=== PATIENT | male | born 1970 | race Asian ===

== ENCOUNTER 2021-06-10 05:03 | Emergency (ER) | payer OTHER ==
[~2021-06-10] VITALS: Ht 175.3 cm; Wt 83.1 kg
[2021-06-10] MEDS ORDERED: OXYMETAZOLINE NASAL SPRAY 0.05%,30ML ONE (05:40)
--- NOTE | 2021-06-10 05:44 | NUR ---
CRIS VILLALBA AT BS.
[2021-06-10 05:58] LABS: BASOPHILS % (AUTO) 1 % (0-1); EOSINOPHILS % (AUTO) 1 % (1-7); LYMPHOCYTES % (AUTO) 16 % (22-44); MEAN CORPUSCULAR HEMOGLOBIN 31.2 pg (27.5-34.5); MEAN PLATELET VOLUME 7.5 fL (7.4-10.4); MONOCYTES % (AUTO) 7 % (2-9); NEUTROPHILS % (AUTO) 75 % (42-75); PLATELET COUNT 275 x10^3/uL (130-400); RED BLOOD COUNT 4.28 x10^6/uL (4.38-5.82); RED CELL DISTRIBUTION WIDTH 13.2 % (9.4-14.8)
[2021-06-10] MEDS ORDERED: ENALAPRIL 10 MG TABLET PO SCH (06:00)
[2021-06-10] MEDS ORDERED: ENALAPRIL 10 MG TABLET PO ONE (06:00)
[2021-06-10] MEDS ORDERED: OXYMETAZOLINE NASAL SPRAY 0.05%, 15ML NAS ONE (06:00)
[2021-06-10 06:07] LABS: ALBUMIN 3.1 g/dL (3.4-5.0); ANION GAP 5 mmol/L (5-15); CALCIUM 8.1 mg/dL (8.5-10.1); CHLORIDE 108 mmol/L (98-107); CREATININE 0.85 mg/dL (0.7-1.3)
--- NOTE | 2021-06-10 06:55 | NUR ---
PT REPORT FROM ABISAI LEE. PT DC INSTRUCTIONS UP.
[2021-06-10 07:08] VITALS: BP 184/127
--- NOTE | 2021-06-10 07:08 | NUR ---
PT IN LT LATERAL POSITION. POSITION CHANGED TO SITTING FOR BP CHECK. PT DENIES PAIN, AT THIS TIME. WRITTEN DC INSTRUCTIONS DISCUSSED W/ PT; QUESTIONS ANSWERED; UNDERSTANDING VERBALIZED.
== END 2021-06-10 07:27 | disposition home or self-care (01) ==
LOC: ED 06:45
DX: I10 Essential (primary) hypertension (principal); R04.0 Epistaxis
CPT/HCPCS: 36415; 80048; 82040; 85025; 93005; 99284

== ENCOUNTER 2021-08-08 21:31 | Emergency (ER) | payer OTHER ==
--- NOTE | 2021-08-08 21:55 | NUR ---
NILX1 FOR TRIAGE
--- NOTE | 2021-08-08 22:07 | NUR ---
NILX2 FOR TRIAGE
--- NOTE | 2021-08-08 22:19 | NUR ---
NILX3
== END 2021-08-08 22:21 | disposition left against medical advice (07) ==
LOC: ED 21:41
DX: R06.02 Shortness of breath (principal); Z53.21 Procedure and treatment not carried out due to patient leaving prior to being seen by health care provider

== ENCOUNTER 2021-08-09 00:25 | Emergency (ER) | payer OTHER ==
[~2021-08-09] VITALS: Ht 175.3 cm; Wt 84.5 kg
[2021-08-09] MEDS ORDERED: LISINOPRIL 20 MG TABLET PO ONE (01:00)
[2021-08-09] MEDS ORDERED: AMLODIPINE 5 MG TABLET PO ONE (01:00)
[2021-08-09 01:07] LABS: BASOPHILS % (AUTO) 1 % (0-1); EOSINOPHILS % (AUTO) 2 % (1-7); LYMPHOCYTES % (AUTO) 19 % (22-44); MEAN CORPUSCULAR HEMOGLOBIN 31.1 pg (27.5-34.5); MEAN CORPUSCULAR HGB CONC 33.8 g/dL (33.2-36.2); MEAN PLATELET VOLUME 7.5 fL (7.4-10.4); MONOCYTES % (AUTO) 7 % (2-9); NEUTROPHILS % (AUTO) 71 % (42-75); PLATELET COUNT 281 x10^3/uL (130-400); RED BLOOD COUNT 5.16 x10^6/uL (4.38-5.82); RED CELL DISTRIBUTION WIDTH 13.3 % (9.4-14.8)
[2021-08-09] MEDS ORDERED: LISINOPRIL 20 MG TABLET ONE (01:09)
[2021-08-09] MEDS ORDERED: AMLODIPINE 10 MG TAB ONE (01:09)
[2021-08-09 01:19] LABS: ANION GAP 7 mmol/L (5-15); CALCIUM 8.2 mg/dL (8.5-10.1); CHLORIDE 108 mmol/L (98-107); CREATININE 1.33 mg/dL (0.7-1.3)
[2021-08-09] MEDS ORDERED: POTASSIUM CHLORIDE 20 MEQ TAB.ER.PRT PO ONE (01:30)
[2021-08-09] MEDS ORDERED: POTASSIUM CHLORIDE 20 MEQ TAB.ER.PRT ONE (02:05)
[2021-08-09 02:08] VITALS: BP 213/138
--- NOTE | 2021-08-09 02:09 | NUR ---
Patient given discharge instructions and they have confirmed that they understand the instructions. Patient ambulatory with steady gait. NAD, all questions answered appropriately, denies additional needs at this time. No personal belongings left in room after discharge.
== END 2021-08-09 02:10 | disposition home or self-care (01) ==
LOC: ED 00:35
DX: I10 Essential (primary) hypertension (principal); N28.9 Disorder of kidney and ureter, unspecified; F17.210 Nicotine dependence, cigarettes, uncomplicated
CPT/HCPCS: 36415; 80048; 85025; 93005; 99406